=== PATIENT | male | born 1940 | race Caucasian/White ===

== ENCOUNTER → 2021-08-31 | Outpatient (CLI) | payer MEDICARE ==
[2021-08-31 16:38] LABS: BASOPHIL # 0.1 10^3/uL (0.0-0.1); BASOPHIL % 0.6 % (0.0-0.2); EOSINOPHIL # 0.1 10^3/uL (0.0-0.2); LYMPHOCYTES # 1.39 10^3/uL1 (1.0-4.8); LYMPHOCYTES % 9.6 % (24.0-44.0); MEAN CORP HGB 30.1 pg (26-34); MONOCYTES # 0.9 10^3/uL (0.3-0.8); MONOCYTES % 6.1 % (5.0-12.0); NEUTROPHIL # 11.6 10^3/uL (1.8-7.7); NEUTROPHILS % 80.5 % (41.0-85.0); RED CELL DISTRIBUTION WIDTH 15.8 % (11.5-14.5)
[2021-08-31 16:55] LABS: CALCIUM 8.8 mg/dL (8.4-10.5); CARBON DIOXIDE 27.3 mmol/L (20.0-32)
== END | disposition home or self-care (01) ==
LOC: EDBD → NPLAB 13:30
PROVIDERS: ATTEND Family Medicine
DX: I48.91 Unspecified atrial fibrillation (principal); E78.5 Hyperlipidemia, unspecified; E11.9 Type 2 diabetes mellitus without complications; M10.00 Idiopathic gout, unspecified site; E56.9 Vitamin deficiency, unspecified
CPT/HCPCS: 80053; 80061; 82308; 83036; 83880; 84443; 84550; 85025

== ENCOUNTER → 2021-09-05 | Outpatient (CLI) | payer MEDICARE ==
[2021-09-05 15:32] LABS: BILIRUBIN,URINE NEGATIVE (NEGATIVE); UROBILINOGEN,URINE 0.2 E.U./dL (0.2)
== END | disposition home or self-care (01) ==
LOC: EDBD → NPLAB 14:56
PROVIDERS: ATTEND Nurse Practitioner Acute Care
DX: N40.0 Benign prostatic hyperplasia without lower urinary tract symptoms (principal)
CPT/HCPCS: 81003

== ENCOUNTER → 2021-09-06 | Outpatient (CLI) | payer MEDICARE ==
[2021-09-06 17:56] LABS: BASOPHIL % 0.5 % (0.0-0.2); EOSINOPHIL # 0.1 10^3/uL (0.0-0.2); EOSINOPHIL % 1.9 % (0.0-5.0); LYMPHOCYTES # 1.41 10^3/uL1 (1.0-4.8); LYMPHOCYTES % 18.9 % (24.0-44.0); MEAN CORP HGB 29.5 pg (26-34); MONOCYTES # 0.7 10^3/uL (0.3-0.8); MONOCYTES % 9.9 % (5.0-12.0); NEUTROPHILS % 67.1 % (41.0-85.0); PLATELET COUNT 383 10^3/uL (150-400); RED CELL DISTRIBUTION WIDTH 15.5 % (11.5-14.5)
[2021-09-06 18:10] LABS: CALCIUM 8.3 mg/dL (8.4-10.5)
== END | disposition home or self-care (01) ==
LOC: EDBD 17:23 → LAB 17:23
PROVIDERS: ATTEND Family Medicine
DX: I10 Essential (primary) hypertension (principal)
CPT/HCPCS: 36415; 80048; 84156; 85025